=== PATIENT | female | born 1960 | race Caucasian/White ===

== ENCOUNTER 2018-05-17 06:43 | Day surgery (SDC) | payer BC, OTHER ==
[2018-05-12 08:49] VITALS: BMI 29.2
[~2018-05-17 06:43] MED LIST: DEXAMETHASONE SOD PHOSPHATE 10 MG/ML 1 ML VIAL IV ONE; HEPARIN SODIUM,PORCINE 5,000 UNIT/ML 1 ML VIAL SQ ONE; LIDOCAINE 1% 20 ML VIAL (10MG/ML) FOR IV START INTRADERMA PRN; MIDAZOLAM 2 MG/2 ML VIAL IV PRN; ceFAZolin IN SWFI 2 GM/20 ML SYRINGE IVP ONE
[2018-05-17] MEDS: LACTATED RINGERS 1,000 ML IV SCH ×2 (07:36→07:55)
[2018-05-17] MEDS: ONDANSETRON 4 MG/2 ML VIAL IVP ONE ×2 (07:44→09:25)
[2018-05-17] MEDS ORDERED: BUPIVACAIN-EPI 0.5%-1:200,000 30 ML VIAL SQ ONE ×2 (07:50→08:18)
--- NOTE | 2018-05-17 07:50 | P.GSHP ---
History of Present Illness H&P Date: 05/17/18 Chief Complaint: Right upper quadrant pain This a 57-year-old female who presents today for laparoscopic cholestatic. Patient's had complaints of right quadrant pain. Her recent she'll shows evidence of cholelithiasis. Past Medical History Past Medical History: Fibromyalgia, GERD/Reflux, Neurologic Disorder, Osteoarthritis (OA), Thyroid Disorder Additional Past Medical History / Comment(s): CHRONIC MIGRAINES. SEASONAL ALLERGIES History of Any Multi-Drug Resistant Organisms: None Reported Past Surgical History: Hysterectomy, Orthopedic Surgery Additional Past Surgical History / Comment(s): SEVERAL [employer] SX FOR ENDOMETRIOSIS , TUMORS, CYSTS AND ADHESIONS. BILAT FOOT SX FOR HAMMER TOE AND BUNIONS. THYROIDECTOMY. RT THUMB JOINT SX. COLONOSCOPY, LASIK SX BILAT EYES Past Anesthesia/Blood Transfusion Reactions: Motion Sickness Smoking Status: Former smoker - Past Family History Father Family Medical History: Cancer Additional Family Medical History / Comment(s): SKIN Mother Family Medical History: Cancer Additional Family Medical History / Comment(s): BLADDER Medications and Allergies Home Medications Medication Instructions Recorded Confirmed Type Acetaminophen-Codeine 300-30mg 1 tab PO Q6H PRN 05/12/18 05/17/18 History [Tylenol w/codeine #3] Cholecalciferol (Vitamin D3) 2,000 unit PO DAILY 05/12/18 05/17/18 History [Vitamin D3] Cyanocobalamin (Vitamin B-12) 2,500 mcg PO DAILY 05/12/18 05/17/18 History [Vitamin B12] Cyclobenzaprine [Flexeril] 10 mg PO TID PRN 05/12/18 05/17/18 History Lansoprazole [Prevacid] 30 mg PO DAILY 05/12/18 05/17/18 History Levothyroxine Sodium [Synthroid] 100 mcg PO DAILY 05/12/18 05/17/18 History Magnesium Gluconate [Magonate] 500 mg PO DAILY 05/12/18 05/17/18 History Meclizine [Antivert] 25 mg PO TID PRN 05/12/18 05/17/18 History Ondansetron HCl [Zofran] 8 mg PO DAILY PRN 05/12/18 05/17/18 History Rizatriptan Benzoate [Maxalt] 10 mg PO TID PRN MDD TWICE A WEEK 05/12/18 History ONLY traMADol HCL [Ultram] 50 mg PO BID PRN 05/12/18 05/17/18 History traZODone HCL [Desyrel] 200 mg PO HS 05/12/18 05/17/18 History Allergies Allergy/AdvReac Type Severity Reaction Status Date / Time hydrocodone [From [place]] Allergy Swelling Verified 05/12/18 08:37 Surgical - Exam Vital Signs Temp Pulse Resp BP Pulse Ox 97.9 F 60 18 126/78 98 05/17/18 07:16 05/17/18 07:16 05/17/18 07:16 05/17/18 07:16 05/17/18 07:16 - General well developed, no distress - Eyes PERRL - ENT normal pinna - Neck no masses - Respiratory normal expansion - Cardiovascular Rhythm: regular - Abdomen Abdomen: soft, non tender Assessment and Plan Assessment: Symptomatically cholelithiasis Chronic cholecystitis We'll perform laparoscopic cholecystectomy.
[2018-05-17] MEDS ORDERED: LIDOCAINE 1% INJ 10MG/ML (20 ML MDV) ONE (07:56)
[2018-05-17] MEDS ORDERED: SUCCINYLCHOLINE CHLORIDE 100 MG/5 ML SYR IV ONE (07:56)
[2018-05-17] MEDS ORDERED: ROCURONIUM BROMIDE 10 MG/ML 10 ML VIAL IV ONE (07:56)
[2018-05-17] MEDS ORDERED: MIDAZOLAM 2 MG/2 ML VIAL ONE (07:56)
[2018-05-17] MEDS ORDERED: PROPOFOL 10 MG/ML 20 ML VIAL IV ONE (07:56)
[2018-05-17] MEDS ORDERED: NEOSTIGMINE 1 MG/ML 10 ML VIAL ONE (07:56)
[2018-05-17] MEDS ORDERED: GLYCOPYRROLATE 0.2 MG/ML 2 ML VIAL ONE (07:56)
[2018-05-17] MEDS ORDERED: fentaNYL (PF) 50 MCG/ML 2 ML AMP ONE (07:56)
--- NOTE | 2018-05-17 08:44 | P.OP ---
Date of Procedure: 05/17/18 Preoperative Diagnosis: Cholecystitis Cholelithiasis Postoperative Diagnosis: Cholecystitis Cholelithiasis Procedure(s) Performed: Laparoscopic appendectomy Anesthesia: WILLOW Surgeon: Nelson Degroot Estimated Blood Loss (ml): 5 Pathology: other (Gallbladder) Condition: stable Disposition: PACU Description of Procedure: The patient was placed on the operating table. The patient received a general endotracheal tube anesthesia. The patients abdomen was prepped and draped in the usual sterile fashion. Through an infraumbilical stab incision, the fascia of the anterior abdominal wall was grasped with a pair of Kochers and then the Veress needle was placed in the peritoneal cavity. Position of the Veress needle was confirmed with positive drop test. The abdomen was then insufflated. After adequate insufflation, the 10 mm trocar was placed in the peritoneal cavity. Following this the laparoscope was placed in the peritoneal cavity. The patient was placed in the head-up, right side up position and then a 5 mm trocar was placed in the right lateral and right subcostal position under direct visualization. A 8 mm trocar was placed in the epigastric position. The gallbladder was grasped in the fundus and infundibulum. Traction on the gallbladder was placed in the lateral and the cephalad positions. The triangle of Calot was visualized.. The cystic duct was bluntly dissected until the union of the cystic duct and common bile duct was seen. The cystic duct was then divided and sealed with the Harmonic scissors. A PDS Endoloop was then placed throughout the cystic duct stump. The cystic artery divided and sealed with the Harmonic scissors. The gallbladder was then removed from the liver bed using Harmonic scissors. The gallbladder was then extracted through the epigastric port site. Operative field was checked for any bleeding spots and Harmonic scissors was used to coagulate the liver bed. The abdomen was irrigated. The trocars were removed. The skin was closed using interrupted 3-0 Vicryl suture. Dermabond dressing were applied. The patient tolerated the procedure well.
[2018-05-17 08:59] VITALS: RESP 16; TEMP 97
[2018-05-17] MEDS: fentaNYL (PF) 50 MCG/ML 2 ML AMP IV PRN ×2 (09:24→09:39)
[2018-05-17] MEDS ORDERED: HYDROcodone/APAP 7.5-325MG 1 EACH TAB PO ONE (11:05)
[2018-05-17 11:43] VITALS: BP 137/70; PULSE 59
== END 2018-05-17 12:08 | disposition home or self-care (01) ==
LOC: OR 06:43
PROVIDERS: ATTEND Surgery
DX: K81.1 Chronic cholecystitis (principal); M79.7 Fibromyalgia; K21.9 Gastro-esophageal reflux disease without esophagitis; M19.90 Unspecified osteoarthritis, unspecified site; E89.0 Postprocedural hypothyroidism; F32.9 Major depressive disorder, single episode, unspecified; G43.909 Migraine, unspecified, not intractable, without status migrainosus; Z88.5 Allergy status to narcotic agent; Z88.8 Allergy status to other drugs, medicaments and biological substances; Z79.890 Hormone replacement therapy; Z79.899 Other long term (current) drug therapy; Z87.891 Personal history of nicotine dependence; Z90.710 Acquired absence of both cervix and uterus; Z80.52 Family history of malignant neoplasm of bladder; Z80.8 Family history of malignant neoplasm of other organs or systems
CPT/HCPCS: 47562; 88304; J2250; J1644; J1100; J2710; J2405; J2001; J3010; J0330; J2704; J0690